=== PATIENT | female | born 1965 | race Caucasian/White ===

== ENCOUNTER 2024-11-08 11:17 | Emergency (ER) | payer BC ==
[~2024-11-08] VITALS: Ht 167.6 cm; Wt 63.0 kg
[2024-11-08 11:28] VITALS: BP 129/64; PULSE 65; RESP 20; TEMP 98.5; O2SAT 99
--- NOTE | 2024-11-08 11:36 | ERN ---
General Chief Complaint: Ankle Problem Stated Complaint: RT ANKLE INJURY Time Seen by MD: 11:31 Time Seen by Midlevel: 11:31 Source: patient History of Present Illness Initial Comments Patient is a 59-year-old female presenting to the emergency department after injuring her right ankle. She reports pain and swelling to the area. Denies any head injury or loss of consciousness. No other symptoms reported at this time. Allergies: Coded Allergies: iodine (Unverified Allergy, Unknown, 11/08/24) Past Medical History Past Medical History: No Pertinent History Past Surgical History: Hysterectomy ROS Dictation CONSTITUTIONAL: Negative except for HPI HEAD/FACE: Negative except for HPI EENT: Negative except for HPI RESPIRATORY: Negative except for HPI GASTROINTESTINAL/ABDOMINAL: Negative except for HPI GENITOURINARY: Negative except for HPI MUSCULOSKELETAL: Negative except for HPI INTEGUMENTARY: Negative except for HPI NEUROLOGICAL/PSYCH: Negative except for HPI HEMATOLOGIC/LYMPHATIC: Negative except for HPI All Systems Negative, Except as noted above. 13 point review of systems assessed and all negative except for above. Physical Exam Physical Exam Dictation Vital Signs reviewed General Appearance: Alert, oriented x 3, no acute distress, well developed, nourished. Head and Face: non-traumatic. Eyes: PERRL, pink conjunctivas, eyelid no trauma, anterior chamber with arcus senilis. Ears: Pinnas intact and no signs of trauma or erythema ear canals clear and no discharge TM no erythema Nose: No discharge, no bleeding. Oropharynx: Mouth normal, tongue pink, pharynx clear,no erythema, tonsils no exudates, no abscesses noted, mucous membrane moist Neck: Supple, non-tender, no thyromegaly, no masses, no JVD, no bruits Breast:Deferred Chest:No tenderness, no crepitus, no paradoxical movement, no retractions Lungs:Clear, well-ventilated, symmetric, no rales, no wheezing, no rhonchi, no stridor, good breath sounds bilaterally Heart: Regular rate, regular rhythm, no murmur, no gallops Vascular: no peripheral edema, Abdomen: Soft, positive bowel sounds, nondistended, no guarding, nontender, no rebound, no masses no hepatomegaly, no splenomegaly, no Johnson's sign, no hernias. Rectal: Deferred Genital: Deferred Neurological: Normal speech, motor function intact, sensory function intact Musculoskeletal: Neck nontender, full range of motion, back nontender, full range of motion, Extremities: Moderate amount of swelling and bruising to right lateral malleolus, moderate, 2+ DP, PT pulses bilaterally. Sensation is intact. Normal capillary refill of less than 2 seconds. Skin: Color pink, dry, no turgor, no rash, no lacerations, no abrasions, no contusions. Lymphatic: Deferred MDM MDM: 59-year-old female presenting to the ER after rolling her right ankle. She has a moderate amount of swelling and bruising to the right lateral mal leolus. However she was neurovascularly intact. X-ray of the right ankle reveals a closed avulsion fracture of the distal fibula. The patient was placed on a posterior splint and will be following up outpatient with executive relations specialist. Patient is stable for discharge Differential diagnosis: Fracture, contusion, dislocation There are no social concerns with this patient. Prescription drug management Prescriptions will include: Ketorolac Medical management and examination interpretation discussions were had by me with other qualified healthcare professionals as indicated for the patient's care. ED Course Orders Procedure Category Date Status Time Ankle 2vws Rt RAD 11/08/24 Taken 11:26 Tibia/Fibula 2vws Rt RAD 11/08/24 Resulted 11:27 Hydrocodone/Apap PHA 11/08/24 Complete 5/325 ([place] 5/325mg) 12:00 Ketorolac PHA 11/08/24 In Process Tromethamine 30mg/Ml 12:30 *Nursing CPOE 11/08/24 Transmitted Communication: 12:08 Current Medications Medications (Trade) Dose Ordered Sig/Jeffry Route PRN Reason Start Time Stop Time Status Last Admin Dose Admin Acetaminophen/ Hydrocodone Bitart (NORco 5/325MG) 1 tab ONCE ONCE PO 11/08/24 12:00 11/08/24 12:03 DC 11/08/24 12:04 Ketorolac Tromethamine (toRADol) 30 mg ONCE ONCE IM 11/08/24 12:30 11/08/24 12:31 Vital Signs Date Time Temp Pulse Resp B/P (MAP) Pulse Ox O2 Delivery O2 Flow Rate FiO2 11/08/24 11:28 98.4 65 20 129/64 99 Room Air* 0 21 11/08/24 11:19 98.4 65 20 129/64 99 0 [facility] [address] [id number] IMAGING REPORT Signed PATIENT: NEISHA BROOKS MR#: [id number] : 1965 SEX: F AGE: 59 LOCATION: ED ORDER 26 STATUS: REG ER REPORT#: [id number] SERVICE 112 REASON: PAIN ORDERING PHYSICIAN: VENTURA PHILLIPS MD PROCEDURE: [id number] - ANKLE 2VWS RT ANKLE 2VWS RT REASON: PAIN TECHNIQUE: 3 views were obtained. FINDINGS: There is lateral soft tissue swelling. There is a minimal apical avulsion flake from the distal tip of the fibula consistent with ligamentous injury. Distal tibia appears normal as do the calcaneus and the talus. IMPRESSION: 1. Small fragment of bone from the distal tip of the fibula consistent with an evulsion injury, there is associated soft tissue swelling. DICTATED BY: KELSEY HOLLAND MD DATE: 11/08/241213 ELECTRONICALLY SIGNED BY: KELSEY HOLLAND MD DATE: 11/08/[address] [address] IMAGING REPORT Signed PATIENT: NEISHA BROOKS MR#: [id number] : 1965 SEX: F AGE: 59 LOCATION: ED ORDER 28 STATUS: REG ER REPORT#: [id number] SERVICE 112 REASON: injury ORDERING PHYSICIAN: VENTURA PHILLIPS MD PROCEDURE: TIBFIB RT - TIBIA/FIBULA 2VWS RT TIBIA/FIBULA 2VWS RT REASON: injury TECHNIQUE: 2 views were obtained. FINDINGS: There is no evidence of fracture or dislocation. There is no joint effusion. The soft tissues appear unremarkable. There is no evidence of a radiopaque foreign body. IMPRESSION: No acute findings. DICTATED BY: KELSEY HOLLAND MD DATE: 11/08/241213 ELECTRONICALLY SIGNED BY: KELSEY HOLLAND MD DATE: 02/20/25 1217 DX & DISP Disposition: Discharge Departure Impression: Primary Impression: Closed avulsion fracture of distal end of right fibula Condition: Stable Scripts Ketorolac Tromethamine (Ketorolac Tromethamine) 10 Mg Tablet 1 TAB PO TID for pain for 5 Days, #15 TAB 0 Refills Prov: EFREM HOANG 11/08/24 Additional Instructions: Your right ankle x-ray shows a small fragment of bone from the distal tip of the fibula consistent with an avulsion injury. You were placed on a splint. You will need to follow up with an executive relations specialist. I have given you Dr. Canchola's information so he can follow up with him outpatient. Referrals: NONE (PCP) RANI CANCHOLA MD Time of Disposition: 12:25 I have reviewed the case, and I agree with, Diagnosis and Plan I performed the substantive portion of the visit. I have reviewed and personally made and approve the management plan that is documented in the note by myself or the AGUSTIN. I acknowledge for responsibility for the patient's management plan. EFREM HOANG Nov 08, 2024 11:36
[2024-11-08] MEDS: HYDROcodone/APAP 5/325 1 TAB TABLET PO ONE (12:04)
--- NOTE | 2024-11-08 12:17 | HMCIMG ---
TIBIA/FIBULA 2VWS RT REASON: injury TECHNIQUE: 2 views were obtained. FINDINGS: There is no evidence of fracture or dislocation. There is no joint effusion. The soft tissues appear unremarkable. There is no evidence of a radiopaque foreign body. IMPRESSION: No acute findings.
--- NOTE | 2024-11-08 12:18 | HMCIMG ---
ANKLE 2VWS RT REASON: PAIN TECHNIQUE: 3 views were obtained. FINDINGS: There is lateral soft tissue swelling. There is a minimal apical avulsion flake from the distal tip of the fibula consistent with ligamentous injury. Distal tibia appears normal as do the calcaneus and the talus. IMPRESSION: 1. Small fragment of bone from the distal tip of the fibula consistent with an evulsion injury, there is associated soft tissue swelling.
[2024-11-08] MEDS: ketOROlac 30MG VIAL (30MG/ML) IM ONE (12:20)
[2024-11-08] MEDS ORDERED: KETO10TA2 PO (12:23)
== END 2024-11-08 12:58 | disposition home or self-care (01) ==
LOC: EDH 11:17
DX: S82.831A Other fracture of upper and lower end of right fibula, initial encounter for closed fracture (principal); S82.491A Other fracture of shaft of right fibula, initial encounter for closed fracture; Z88.8 Allergy status to other drugs, medicaments and biological substances; Z90.710 Acquired absence of both cervix and uterus; Z91.041 Radiographic dye allergy status; X58.XXXA Exposure to other specified factors, initial encounter; Y93.89 Activity, other specified; Y92.89 Other specified places as the place of occurrence of the external cause; Y99.8 Other external cause status
CPT/HCPCS: 99284; 73600; 73590; 96372; J1885